=== PATIENT | female | born 1985 | race Caucasian/White ===

== ENCOUNTER 2017-11-18 14:12 | Emergency (ER) | payer OTHER ==
--- NOTE | 2017-11-18 15:22 | ER Document Report ---
ED Medical Screen (RME) - General Chief Complaint: Vag Bleeding, +preg <12wks Stated Complaint: VAGINAL BLEEDING,ABDOMINAL PAIN Time Seen by Provider: 11/18/17 15:15 Notes: 31-year-old female patient is 11 weeks . She just arrived home from a trip from [place]. She has noted today dark brown vaginal bleeding with cramps. She does not know her blood type, she recalls getting a shot with a previous but does not know what that was. I have greeted and performed a rapid initial assessment of this patient. A comprehensive ED assessment and evaluation of the patient, analysis of test results and completion of the medical decision making process will be conducted by additional ED providers. TRAVEL OUTSIDE OF THE [place] IN LAST 30 DAYS: No - Related Data Allergies/Adverse Reactions: No Known Allergies Allergy (Verified 11/18/17 14:16) Past Medical History - Social History Chew tobacco use (# tins/day): No Frequency of alcohol use: None Drug Abuse: None Pulmonary Medical History: Reports: Hx Asthma - states stocking inspector told her yesterday she may have asthma Renal/ Medical History: Denies: Hx Peritoneal Dialysis Past Surgical History: Reports: Hx Abdominal Surgery - laproscopic, Hx Section - Immunizations Immunizations up to date: Yes Hx Diphtheria, Pertussis, Tetanus Vaccination: Yes Physical Exam - Vital signs Vitals: Temp Pulse Resp BP Pulse Ox 97.6 F 81 18 112/73 100 11/18/17 15:05 11/18/17 15:05 11/18/17 15:05 11/18/17 15:05 11/18/17 15:05 Course - Vital Signs Vital signs: Temp Pulse Resp BP Pulse Ox 97.6 F 81 18 112/73 100 11/18/17 15:05 11/18/17 15:05 11/18/17 15:05 11/18/17 15:05 11/18/17 15:05
[2017-11-18 15:39] LABS: APPEARANCE,URINE SLIGHTLY-CLOUDY; BILIRUBIN,URINE NEGATIVE (NEGATIVE); COLOR,URINE STRAW; GLUCOSE, URINE NEGATIVE (NEGATIVE); KETONES,URINE NEGATIVE (NEGATIVE); LEUKOCYTE ESTERASE,URINE NEGATIVE (NEGATIVE); NITRITE,URINE NEGATIVE (NEGATIVE); PROTEIN,URINE NEGATIVE (NEGATIVE); URINE SPECIFIC GRAVITY 1.005; UROBILINOGEN,URINE NEGATIVE mg/dL (<2.0)
[2017-11-18 16:11] LABS: ABSOLUTE EOSINOPHILS # (AUTO) 0.1 10^3/uL (0.0-0.6); ABSOLUTE LYMPHOCYTES (AUTO) 2.2 10^3/uL (0.5-4.7); ABSOLUTE MONOCYTES (AUTO) 0.4 10^3/uL (0.1-1.4); BASOPHILS % (AUTO) 0.3 % (0-2); EOSINOPHILS % (AUTO) 1.1 % (0-6); HEMATOCRIT 37.2 % (36.0-47.0); HEMOGLOBIN 12.5 g/dL (12.0-15.5); LYMPHOCYTES % (AUTO) 18.6 % (13-45); MEAN CORPUSCULAR HEMOGLOBIN 30.6 pg (27.0-33.4); MEAN CORPUSCULAR HGB CONC 33.7 g/dL (32.0-36.0); MEAN CORPUSCULAR VOLUME 91 fl (80-97); MONOCYTES % (AUTO) 3.1 % (3-13); PLATELET COUNT 315 10^3/uL (150-450); RED CELL DISTRIBUTION WIDTH 13.3 % (11.5-14.0); SEGMENTED NEUTROPHILS % (AUTO) 76.9 % (42-78); TOTAL CELLS COUNTED % (AUTO) 100 %; WHITE BLOOD COUNT 11.7 10^3/uL (4.0-10.5)
--- NOTE | 2017-11-18 16:27 | ER Document Report ---
ED GI/ - General Chief Complaint: Vag Bleeding, +preg <12wks Stated Complaint: VAGINAL BLEEDING,ABDOMINAL PAIN Time Seen by Provider: 11/18/17 15:15 Notes: Patient is a 11-1/2 weeks 31-year-old female who presents emergency department complaining of mild right lower quadrant cramping with minimal vaginal bleeding 1. Describes it as less than a cup and just stained her underwear did not leak through her pants. She denies any vaginal bleeding when she went to wipe. She admits to mild right lower quadrant discomfort. Had an ultrasound confirming her last week. History of endometriosis and ovarian cysts. Follows with [facility] TRAVEL OUTSIDE OF THE [place] IN LAST 30 DAYS: No - Related Data Allergies/Adverse Reactions: No Known Allergies Allergy (Verified 11/18/17 14:16) Past Medical History - Social History Smoking Status: Never Smoker Chew tobacco use (# tins/day): No Frequency of alcohol use: None Drug Abuse: None Family History: Reviewed & Not Pertinent Patient has suicidal ideation: No Patient has homicidal ideation: No Pulmonary Medical History: Reports: Hx Asthma - states director new product told her yesterday she may have asthma Renal/ Medical History: Denies: Hx Peritoneal Dialysis Past Surgical History: Reports: Hx Abdominal Surgery - laproscopic, Hx Section - Immunizations Immunizations up to date: Yes Hx Diphtheria, Pertussis, Tetanus Vaccination: Yes Review of Systems - Review of Systems Constitutional: No symptoms reported Cardiovascular: No symptoms reported Respiratory: No symptoms reported Gastrointestinal: See HPI Genitourinary: No symptoms reported Female Genitourinary: See HPI -: Yes All other systems reviewed and negative Physical Exam - Vital signs Vitals: Temp Pulse Resp BP Pulse Ox 97.6 F 81 18 112/73 100 11/18/17 15:05 11/18/17 15:05 11/18/17 15:05 11/18/17 15:05 11/18/17 15:05 - Notes Notes: PHYSICAL EXAM GENERAL: Alert, interacts well. LUNGS: Clear to auscultation bilaterally, no wheezes, rales, or rhonchi. No respiratory distress. HEART: Regular rate and rhythm. No murmurs, gallops, or rubs. ABDOMEN: Gravid, soft, nondistended, nontender. No guarding, rebound, or rigidity.. Bowel sounds present in all 4 quadrants. EXTREMITIES: Moves all 4 extremities spontaneously. No edema, radial and dorsalis pedis pulses 2/4 bilaterally. No cyanosis. NEUROLOGICAL: Alert and oriented x4. Normal speech. PSYCH: Normal affect, normal mood. SKIN: Warm, dry, normal turgor. No rashes or lesions noted. Course - Re-evaluation Re-evalutation: 11/18/17 19:09 Patient is a 31-year-old female is hemodynamically stable, no acute distress and afebrile. No evidence of leukocytosis or anemia. No evidence of UTI, dehydration. Transabdominal ultrasound shows 11-1/2 week intrauterine with heart rate of 173. No evidence of subchorionic bleed. Evidence of right ovarian cysts. No evidence of free fluid. Patient at this time will be stable for discharge home with instruction to follow-up in 48-72 hours for repeat blood work. Patient agrees with plan and stable for discharge home. Discussed strict return precautions. - Vital Signs Vital signs: Temp Pulse Resp BP Pulse Ox 98.2 F 94 16 109/71 100 11/18/17 18:55 11/18/17 18:55 11/18/17 18:55 11/18/17 18:55 11/18/17 18:55 - Laboratory Result Diagrams: 11/18/17 15:50 Laboratory results interpreted by me: 11/18/17 11/18/17 11/18/17 15:23 15:50 15:50 WBC 11.7 H Absolute Neutrophils 9.0 H Beta HCG, Quant 08866.00 H Urine Blood SMALL H Urine Ascorbic Acid 40 H - Diagnostic Test Radiology reviewed: Reports reviewed Discharge - Discharge Clinical Impression: Vaginal bleeding in Condition: Good Disposition: HOME, SELF-CARE Additional Instructions: : You are . care is best started as early in as possible. If you're unsure about continuing this , you should discuss this with your physician or with assistant quality manager at [facility]. You should take only medications approved by your physician. Acetaminophen can safely be taken for minor pains. As a rule, medication for chronic conditions such as asthma or seizures can safely be continued. You should discuss with the physician every medicine you take. Any regular exercise program can be continued. Talk to your physician, however, before engaging in competitive or demanding sports. Alcohol, smoking, and "street drugs" are dangerous to your baby. Cocaine is especially dangerous. Don't use any illicit drugs! BLEEDING DURING EARLY : You have been evaluated for passing blood while . While we take this symptom very seriously, most women with your degree of bleeding will go on to have a perfectly normal baby. At this time, there is no indication that a miscarriage will occur. (A miscarriage occurs when the fetus is abnormal. There is no medicine or treatment to prevent it.) A more serious cause of bleeding is tubal (or ectopic) . An ultrasound usually can show whether the is in the uterus or in the tube. Sometimes in early , no fetus is seen. In this case, careful follow-up, including repeat blood tests and repeat ultrasound, is necessary. Do not douche or have sex for at least a week, or until OK'd by the doctor. Don't use tampons. Call the doctor or return for re-examination if there is an increase in bleeding or cramping, extreme weakness, fainting, new abdominal pain, fever, or passage of tissue. FOLLOW-UP CARE: If you have been referred to a physician for follow-up care, call the physician s office for an appointment as you were instructed or within the next two days. If you experience worsening or a significant change in your symptoms (very heavy bleeding with large clots of blood, passage of tissue, more severe abdominal / pelvic pain or cramping, feeling faint or severe weakness, fever, etc.), notify the physician immediately or return to the Emergency Department at any time for re-evaluation. OBSTETRIC-GYNECOLOGIC (OB-BARREL STRAIGHTENER) PHYSICIANS IN [place]: [facility] [address] [place] [address] [phone] Forms: Follow-Up Laboratory Testing
[2017-11-18] MEDS ORDERED: ONDANSETRON 4 MG TAB.RAPDIS PO ONE (18:41)
[2017-11-18] MEDS ORDERED: ACETAMINOPHEN 325 MG TABLET PO ONE (18:42)
--- NOTE | 2017-11-18 18:43 | RADIOLOGY REPORT (SQ) ---
EXAM DESCRIPTION: U/S [id number] TRNABD 1GES W/ODOP COMPLETED DATE/TIME: 11/18/2017 6:32 pm REASON FOR STUDY: 11 wks, dark brown bleeding w/ cramps today COMPARISON: None. TECHNIQUE: Transabdominal static and realtime grayscale images acquired of the pelvis. Additional se lected spectral and color Doppler images recorded. All images stored on PACs. [id number] LIMITATIONS: None. FINDINGS: FETUS: Living intrauterine . EGA: 11 weeks 6 days LUCÍA: 06/03/2008 FHR: 173 beats per minute. SUBCHORIONIC BLEED: No SIZE OF BLEED: Not applicable. UTERUS: No masses. No anomalies. CERVICAL LENGTH: 3.5 cm Closed. RIGHT ADNEXA: Hypoechoic areas identified in the right ovary measuring 2.3 x 2.3 x 1.7 cm which may r epresent a corpus lutein cysts. No adnexal free fluid. No adnexal masses. LEFT ADNEXA: Left ovary is not visualized. No adnexal free fluid. No adnexal masses. FREE FLUID: None. OTHER: No other significant finding. IMPRESSION: LIVING INTRAUTERINE . EGA 11 weeks 6 days Trimester of : First - 0 to 13 weeks. TECHNICAL DOCUMENTATION: JOB ID: [id number] [employer]- All Rights Reserved
[2017-11-18 18:55] VITALS: BP 109/71
== END 2017-11-18 19:24 | disposition home or self-care (01) ==
LOC: ER 14:12
DX: O46.91 Antepartum hemorrhage, unspecified, first trimester (principal); R10.31 Right lower quadrant pain; Z3A.11 11 weeks gestation of pregnancy
CPT/HCPCS: 99284; 86900; 86901; 36415; 84702; 85025; 81001; 76801; S0119

== ENCOUNTER → 2017-11-22 | Outpatient (CLI) | payer OTHER | LOC: LB 16:50 | PROVIDERS: ATTEND Physician Assistant Surgical | DX: N93.9 Abnormal uterine and vaginal bleeding, unspecified (principal) ==

== ENCOUNTER → 2017-11-22 | Outpatient (CLI) | payer OTHER | LOC: LAB 16:59 | PROVIDERS: ATTEND Physician Assistant Surgical | DX: N93.9 Abnormal uterine and vaginal bleeding, unspecified (principal) | CPT/HCPCS: 36415; 84702 ==

== ENCOUNTER 2020-05-16 06:53 | Emergency (ER) | payer OTHER ==
[2020-05-16 07:00] VITALS: BP 103/67
[2020-05-16] MEDS ORDERED: ONDANSETRON 4 MG TAB.RAPDIS PO ONE (07:10)
== END 2020-05-16 08:28 | disposition left against medical advice (07) ==
LOC: ER 06:53
DX: Z53.21 Procedure and treatment not carried out due to patient leaving prior to being seen by health care provider (principal); R51 Headache; R11.10 Vomiting, unspecified
CPT/HCPCS: S0119

== ENCOUNTER 2020-11-06 23:06 | Emergency (ER) | payer OTHER ==
[2020-11-06] MEDS ORDERED: ONDANSETRON HCL INJ/PF 4 MG/2 ML SDV IV ONE (23:30)
[2020-11-06] MEDS ORDERED: RINGERS SOLUTION,LACTATED 1,000 ML IV ONE (23:30)
--- NOTE | 2020-11-06 23:33 | ER Document Report ---
ED Medical Screen (RME) - General Chief Complaint: Nausea/Vomiting Stated Complaint: HEADACHE/NAUSEA/DIZZINES Time Seen by Provider: 11/06/20 23:24 Mode of Arrival: Wheelchair Information source: Patient Notes: Patient is a 34-year-old female comes emergency room with uncontrolled vomiting. 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 She felt like she might be just dehydrated and has been drinking lots of water when she went to bed tonight she got nauseous and started vomiting. She has brought up some brownish clear fluid but she had a roast beef type presentation for dinner tonight. No one else in the house has been sick. Patient was Covid positive back in August and still has not regained her sense of taste or smell. Patient's only past medical history is pertinent for cardiomyopathy and is currently on a beta-wilner. Last menstrual period is at its and currently. She does have an IUD in place. Physical examination: Patient is a well-nourished well-developed 34-year-old female who is in no distress but is obviously ill appearing and actively vomiting on examination. Cardiac: Patient has a slightly tachycardic rate at 101 bpm. Lungs: Bilateral breath sounds breath sounds increased clear auscultation. Abdomen: Bowel sounds are present all 4 quads nontender to palpate. Patient is a past surgical history is pertinent for 2 C-sections. I have greeted and performed a rapid initial assessment of this patient. A comprehensive ED assessment and evaluation of the patient, analysis of test results and completion of the medical decision making process will be conducted by additional ED providers. Dictation of this chart was performed using voice recognition software; therefore, there may be some unintended grammatical errors. TRAVEL OUTSIDE OF THE [place] IN LAST 30 DAYS: No - Related Data Allergies/Adverse Reactions: haloperidol [From Haldol] Allergy (Verified 11/06/20 23:30) metoclopramide [From Reglan] Allergy (Verified 11/06/20 23:30) Past Medical History - Social History Chew tobacco use (# tins/day): No Frequency of alcohol use: Occasional Drug Abuse: None Pulmonary Medical History: Reports: Hx Asthma - states storage management consultant told her yesterday she may have asthma Renal/ Medical History: Denies: Hx Peritoneal Dialysis Past Surgical History: Reports: Hx Abdominal Surgery - laproscopic, Hx Section - Immunizations Immunizations up to date: Yes Hx Diphtheria, Pertussis, Tetanus Vaccination: Yes Physical Exam - Vital signs Vitals: Temp Pulse Resp BP Pulse Ox 98.0 F 101 H 18 119/73 100 11/06/20 23:13 11/06/20 23:13 11/06/20 23:13 11/06/20 23:13 11/06/20 23:13 Course - Vital Signs Vital signs: Temp Pulse Resp BP Pulse Ox 98.0 F 101 H 18 119/73 100 11/06/20 23:26 11/06/20 23:13 11/06/20 23:13 11/06/20 23:13 11/06/20 23:13
[2020-11-07 00:27] LABS: ABSOLUTE EOSINOPHILS # (AUTO) 0.1 10^3/uL (0.0-0.6); ABSOLUTE MONOCYTES (AUTO) 0.4 10^3/uL (0.1-1.4); ABSOLUTE NEUT (AUTO) 7.3 10^3/uL (1.7-8.2); HEMOGLOBIN 12.9 g/dL (12.0-15.5); PLATELET COUNT 265 10^3/uL (150-450); TOTAL CELLS COUNTED % (AUTO) 100 %
[2020-11-07 00:48] LABS: ALBUMIN 4.1 g/dL (3.5-5.0); ALKALINE PHOSPHATASE 41 U/L (38-126); ANION GAP 9 (5-19); ASPARTATE AMINO TRANSFERASE 31 U/L (14-36); BILIRUBIN,DIRECT 0.1 mg/dL (0.0-0.4); BILIRUBIN,TOTAL 0.6 mg/dL (0.2-1.3); BLOOD UREA NITROGEN 17 mg/dL (7-20); CALCIUM 9.4 mg/dL (8.4-10.2); CARBON DIOXIDE 29 mmol/L (22-30); CHLORIDE 103 mmol/L (98-107); GLUCOSE 127 mg/dL (75-110); POTASSIUM 3.2 mmol/L (3.6-5.0); TOTAL PROTEIN 6.9 g/dL (6.3-8.2)
[2020-11-07 00:50] LABS: ABSOLUTE LYMPHOCYTES (AUTO) 1.9 10^3/uL (0.5-4.7); BASOPHILS % (AUTO) 0.3 % (0-2); EOSINOPHILS % (AUTO) 0.8 % (0-6); HEMATOCRIT 38.1 % (36.0-47.0); LYMPHOCYTES % (AUTO) 19.9 % (13-45); MEAN CORPUSCULAR HEMOGLOBIN 30.7 pg (27.0-33.4); MEAN CORPUSCULAR HGB CONC 33.8 g/dL (32.0-36.0); MEAN CORPUSCULAR VOLUME 91 fl (80-97); RED CELL DISTRIBUTION WIDTH 13.2 % (11.5-14.0); WHITE BLOOD COUNT 9.7 10^3/uL (4.0-10.5)
[2020-11-07] MEDS ORDERED: DIPHENHYDRAMINE HCL 50 MG/ML VIAL IV ONE (02:08)
[2020-11-07] MEDS ORDERED: KETOROLAC TROMETHAMINE INJ/PF 30 MG/1 ML SDV IV ONE (02:08)
[2020-11-07] MEDS ORDERED: PROMETHAZINE HCL INJ 25 MG/1 ML VIAL IV ONE (02:09)
--- NOTE | 2020-11-07 03:09 | RADIOLOGY REPORT (SQ) ---
CHEST X-RAY 2 view on 11/07/2020 at 2:31 AM CLINICAL INDICATION: Syncope COMPARISON: 12/24/2013 FINDINGS: The lungs are clear. Cardiac, hilar and mediastinal contours are within normal limits. Pulmonary vascularity is within normal limits. No bony abnormality is noted. IMPRESSION: No active disease.
--- NOTE | 2020-11-07 04:01 | ER Document Report ---
ED General - General Chief Complaint: Nausea/Vomiting Stated Complaint: HEADACHE/NAUSEA/DIZZINES Time Seen by Provider: 11/06/20 23:24 Primary Care Provider: KARTHIK BIRMINGHAM NP [Primary Care Provider] - Follow up as needed Mode of Arrival: Wheelchair TRAVEL OUTSIDE OF THE [place] IN LAST 30 DAYS: No - HPI Notes: Chief Complaint: Headache, nausea vomiting Historian: History obtained from patient HPI: This is a 34-year-old female presents to the ED complaining of headache, nausea vomiting, near syncope. Patient says she developed a headache soon after having a scheduled massage earlier today. Headache is bitemporal and occipital. Gradual onset not the worst headache of her life. She has been nauseous intermittently today. While at home this evening patient says she had an episode of feeling lightheaded and near syncope at home while walking through the kitchen. When she arrived in the ED she had 2 episodes of nonbloody emesis. She denies chest pain, shortness of breath, abdominal pain, bowel changes, urinary changes. She does have a history of having headache syndromes which this is similar. No recent head injury or trauma. She denies any vision changes, unilateral numbness weakness. Or other neuro deficits. No fever, chills or other infectious signs. ROS: Constitutional: no fevers. HEENT: Headache CV: no chest pain or palpitations. Resp: no cough or SOB. GI: Nausea vomiting : no dysuria, hematuria, or incont. MSK: no back pain, no joint swelling/redness. Skin: no rashes or itching. Neuro: Near syncope Hematological: no ecchymosis or easy bleeding. Endocrine: no polyuria/polydipsia, no heat/cold intolerance. Psych: no SI/HI, AH/VH or memory loss. PMHx: Reviewed and agree as charted by RN. PSHx: Reviewed and agree as charted by RN. SOCHx: Reviewed and agree as charted by RN. FHX: No significant familial comorbid conditions directly related to patient complaint Current Medications: Reviewed and agree with the patient medications as charted by the RN. Allergies: Reviewed and agree with the listed allergies as charted by the RN Physical Exam: Vitals: Reviewed in chart as documented by RN. General: Alert and in NAD. Head: Normocephalic; atraumatic Eyes: PERRLA, Conjunctivae clear sclerae non-icteric bilat ENT: no soft palate swelling or uvular deviation Neck: trachea midline, no unilateral swelling/tenderness/lymphadenopathy CV: RRR, no M/R/G; symmetric distal pulses Resp: respirations even and unlabored, CTA bilat. GI: abd soft and nondistended. NTTP. normal BS. no masses/HSM. no CVAT bilat MSK: FROM of all extremities. No midline CTL spine tenderness/deformity Skin: warm, moist, good turgor. no rash/lesions Neuro: Alert and oriented X 4. following CN 2-12 intact. no unilateral weakness/numbness Psych: No SI/HI or AH/VH. ED Results: Medical Decision-Making: Differential includes electrolyte abnormality, orthostatic hypotension, dehydration, metabolic abnormality, vasovagal, neurogenic syncope, cardiogenic syncope, infectious etiologies, hypoglycemia, migraine, headache syndromes, tension headache, cluster headache, ICH, cardiac abnormalities, anemia etc. [employer], CK level UA, EKG, chest x-ray, IV fluids. Toradol Phenergan and Benadryl given for headache. No episodes of vomiting since receiving medications. Patient says she is feeling better since receiving IV fluids. 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 orthostatic VS negative. pt resting comfortable in bed. no episodes of vomiting for past few hours. - Vital Signs Vital signs: Temp Pulse Resp BP Pulse Ox 98.0 F 70 18 104/56 L 100 11/06/20 23:26 11/07/20 04:18 11/06/20 23:13 11/07/20 04:18 11/06/20 23:13 - Laboratory Results Result Diagrams: 11/07/20 00:13 11/07/20 00:13 Laboratory Results Interpreted: 11/07/20 00:13 Potassium 3.2 L Glucose 127 H Critical Laboratory Results Reviewed: No Critical Results - Radiology Results Critical Radiology Results Reviewed: No Critical Results - EKG Interpretation by Me EKG shows normal: Sinus rhythm Rate: Normal Rhythm: NSR [place]/QRS: No: Right axis deviation, Left axis deviation, RBBB, LBBB, IVCD, LAHB/LAFB, LPHB/LPFB, Bifasicular block Voltage: No: Increased voltage, Consistent with LVH, Consistent with RVH, Dec reased voltage, Throughout, Limb leads P Waves: No: PERCY, LAE, Absent, AV Dissociation, Other Heart block present: No: 1st Degree, Mobitz 1, Mobitz 2, CHB (3rd degree block) When compared to previous EKG there are: Previous EKG unavailable Additional EKG results interpreted by me: 11/07/20 04:02 EKG reviewed by ER physician. Discharge - Discharge Clinical Impression: Near syncope, Hypokalemia Headache Qualifiers: Headache type: other headache syndrome Qualified Code(s): G44.89 - Other headache syndrome Nausea & vomiting Qualifiers: Vomiting type: unspecified Vomiting Intractability: intractable Qualified Code(s): R11.2 - Nausea with vomiting, unspecified Condition: Stable Disposition: HOME, SELF-CARE Instructions: Antinausea Medication ([facility]) Additional Instructions: drink plenty of fluids to stay hydrated. follow printed instructions. follow up with your doctor in 2-3 days for recheck. return to the ER if your condition worsens. Prescriptions: Promethazine HCl [Phenergan 25 mg Tablet] 25 - 50 mg PO ASDIR PRN #12 tablet PRN Reason: Referrals: KARTHIK BIRMINGHAM NP [Primary Care Provider] - Follow up as needed
[2020-11-07 04:13] LABS: APPEARANCE,URINE CLEAR; BILIRUBIN,URINE NEGATIVE (NEGATIVE); COLOR,URINE COLORLESS; GLUCOSE, URINE NEGATIVE (NEGATIVE); KETONES,URINE NEGATIVE (NEGATIVE); LEUKOCYTE ESTERASE,URINE NEGATIVE (NEGATIVE); NITRITE,URINE NEGATIVE (NEGATIVE); PROTEIN,URINE NEGATIVE (NEGATIVE); URINE SPECIFIC GRAVITY 1.002; UROBILINOGEN,URINE NEGATIVE mg/dL (<2.0)
[2020-11-07 05:35] VITALS: BP 106/57
--- NOTE | 2020-11-07 12:22 | EKG REPORT ---
SEVERITY:- NORMAL ECG - SINUS RHYTHM : Confirmed by: Lizzy Tierney MD 07-Nov-2020 12:22:15
== END 2020-11-07 05:34 | disposition home or self-care (01) ==
LOC: ER 23:06
DX: R51.9 Headache, unspecified (principal); R11.2 Nausea with vomiting, unspecified; R55 Syncope and collapse; E87.6 Hypokalemia; Z88.8 Allergy status to other drugs, medicaments and biological substances
CPT/HCPCS: 93005; 99285; 96361; 96374; 96375; 36415; 83690; 85025; 81025; 80053; 81001; 71046; 93010; J1200; J1885; J2550; J2405; J7120

== ENCOUNTER 2020-11-08 04:18 | Emergency (ER) | payer SELFPAY ==
[2020-11-08] MEDS ORDERED: NORMAL SALINE 1000 ML 1,000 ML IV PRN (06:50)
[2020-11-08] MEDS ORDERED: MORPHINE SULFATE 10 MG/ML INJ IV ONE ×2 (06:52→08:18)
[2020-11-08] MEDS ORDERED: ONDANSETRON HCL INJ/PF 4 MG/2 ML SDV IV ONE (06:52)
--- NOTE | 2020-11-08 07:01 | ER Document Report ---
ED General - General Chief Complaint: Headache Stated Complaint: NAUSEA/HEADACHE Time Seen by Provider: 11/08/20 06:35 Primary Care Provider: KARTHIK BIRMINGHAM NP [Primary Care Provider] - Follow up as needed TRAVEL OUTSIDE OF THE [place] 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 This lady has a remote history of rare migraine headaches. States that 3 days ago she awakened with a dull headache around 8 AM. She went to get a massage and this lasted for about 1 hour. During the massage her headache became much worse and she became nauseated and vomited a couple times. She experienced onset of some photophobia at that time. No other visual disturbance. No sensory disturbance and no neur ologic deficit. She tried some icma-fec-fmkpxla medications with no relief of symptoms and ultimately decided to come here yesterday for further evaluation. She was seen by one of the physicians assistants who noted that she did not have any fever and had no abnormal neurologic findings. He did not feel that she had evidence of meningitis at that time. No head CT was done. Patient showed some improvement of her symptoms after receiving IV fluids and Benadryl and Reglan. Patient says that she got some mild akathisia symptoms after receiving Benadryl and Phenergan. She was found to have a low potassium of 3.2 and was sent home on some potassium. She comes back in now saying her headache is worse and she is having persistent photophobia and nausea. She continues to deny fever. She denies skin rash. Patient is basically healthy. She takes a beta-wilner chronically noting that she has had a past history of a peripartum cardiomyopathy after her last . She is a 4 para 3 AB 1 with 2 previous C-sections. Patient reports that she previously had Covid about 6 months ago. She has had no recent exposure to ill individuals that she is aware of. - Related Data Allergies/Adverse Reactions: haloperidol [From Haldol] Allergy (Verified 11/06/20 23:30) metoclopramide [From Reglan] Allergy (Verified 11/06/20 23:30) Home Medications: lexapro, metoprolol, vit b6 Past Medical History - General Information source: Patient - Social History Smoking Status: Never Smoker Frequency of alcohol use: Rare Drug Abuse: None Lives with: Family Family History: Reviewed & Not Pertinent - Past Medical History Cardiac Medical History: Reports: Other - History of peripartum cardiomyopathy Pulmonary Medical History: Reports: Hx Asthma - states printer technician told her yesterday she may have asthma Neurological Medical History: Reports: Hx Migraine Endocrine Medical History: Denies: Hx Diabetes Mellitus Type 1, Hx Diabetes Mellitus Type 2 Renal/ Medical History: Denies: Hx Peritoneal Dialysis Psychiatric Medical History: Reports: Hx Anxiety Past Surgical History: Reports: Hx Abdominal Surgery - laproscopic, Hx Section - Immunizations Immunizations up to date: Yes Hx Diphtheria, Pertussis, Tetanus Vaccination: Yes Review of Systems - Review of Systems Notes: Constitutional: Negative for fever. HENT: Negative for sore throat. Eyes: As per HPI. Cardiovascular: Negative for chest pain. Respiratory: Negative for shortness of breath. Gastrointestinal: As per HPI. Genitourinary: Negative for dysuria. Musculoskeletal: Negative for back pain. Skin: Negative for rash. Neurological: As per HPI. 10 point ROS negative except as marked above and in HPI. Physical Exam - Vital signs Vitals: Temp Pulse BP Pulse Ox 98.2 F 83 114/78 98 11/07/20 16:23 11/07/20 16:23 11/07/20 16:23 11/07/20 16:23 - Notes Notes: GENERAL: Slender female approximately stated age who appears moderately uncomfortable and photophobic. SKIN: Good turgor no rashes. HEAD: Normocephalic atraumatic. EYES: PERRLA. EOMI. Conjunctivae and sclerae clear. EARS: CANALS AND TMS CLEAR. NOSE: CLEAR. MOUTH: Moist mucosa. Good dentition. No stridor or edema. No drooling. NECK: Mild meningismus. No masses or thyromegaly. No adenopathy. Carotids 2+ without bruits. No JVD. BACK: Symmetrical without tenderness. CHEST: Respirations unlabored. Breath sounds clear and symmetrical. HEART: Regular rhythm. No murmur gallop or rub. ABDOMEN: Soft nontender without masses, organomegaly or rebound. Bowel sounds normally active. No bruits. GENITALIA: Deferred. EXTREMITIES: No edema. No calf tenderness. Cap refill less than 1.5 seconds. Dorsalis pedis and posterior tibial pulses 3+ and symmetrical. NEUROLOGICAL: GCS 15. Alert and oriented x3. Normal gait. Fluent speech. Cranial nerves II through XII intact. Sensorimotor and cerebellar normal. Normal tone. PSYCHIATRIC: Anxious affect. Course - Re-evaluation Re-evalutation: 11/08/20 12:51 Patient is afebrile here. Her white count was not elevated. Her chemistry profile today is unremarkable. Normal head CT per radiologist. We did an LP to rule out an aseptic meningitis. She had a mild traumatic tap but the fluid cleared completely in the cell count on tube #4 shows a single white cell. Patient received Dilaudid here for relief of her pain. We subsequently obtained MRI of the brain to rule out dural sinus thrombosis and this was read as negative by the radiologist. I think this lady probably has had migraine headache which is now improved. She appears stable for outpatient management by her primary provider. Findings, clinical impression and plan of treatment have been discussed with patient/family. Understanding of current findings and recommendations has been acknowledged by them and there is agreement regarding disposition and follow-up. - Vital Signs Vital signs: Temp Pulse Resp BP Pulse Ox 98.1 F 78 17 107/66 100 11/08/20 10:35 11/08/20 10:35 11/08/20 04:25 11/08/20 10:35 11/08/20 10:35 - Laboratory Results Result Diagrams: 11/08/20 07:24 11/08/20 09:59 Laboratory Results Interpreted: 11/08/20 11/08/20 11/08/20 07:24 08:49 09:59 Seg Neutrophils % 78.8 H Chloride 115 H Anion Gap 1 L Creatinine 0.43 L Calcium 7.1 L CSF WBC 28 H CSF RBC [id number] H Critical Laboratory Results Reviewed: Yes Attending or Supervising Physician who Reviewed Labs: LAURA ZEPEDA - Radiology Results Critical Radiology Results Reviewed: Yes Attending or Supervising Physician who Reviewed Radiology: LAURA ZEPEDA Procedures - Lumbar Puncture Lumbar puncture Time completed: 08:48 Consent obtained: Yes Lumbar puncture pre-procedure: Sterile PPE donned, Betadine prep applied, Sterile drapes applied Patient position: Sitting Needle size: 22 Lumbar puncture location: L4/5 Anesthetic type: 1% Lidocaine mL's of anesthetic: 3 Amount/type of drainage: Traumatic tap cleared from Tube 1-4 Number of attempts: 1 Complications: No Discharge - Discharge Clinical Impression: Headache Qualifiers: Headache type: unspecified Headache chronicity pattern: acute headache Intractability: not intractable Qualified Code(s): R51.9 - Headache, unspecified Condition: Stable Disposition: HOME, SELF-CARE Additional Instructions: See your primary care provider within the next 24 to 48 hours. Return here as needed for new or worsening symptoms: Pain that is worsening or unimproved Uncontrolled vomiting High fever or shaking chills Overall worsening Prescriptions: Oxycodone HCl/Acetaminophen [Percocet 5-325 mg Tablet] 1 tab PO Q6H PRN #15 tablet PRN Reason: Ondansetron [Zofran Odt 4 mg Tablet] 1 - 2 tab PO Q4H PRN #15 tab.rapdis PRN Reason: For Nausea/Vomiting Referrals: KARTHIK BIRMINGHAM [employer] SPECIALIST [Primary Care Provider] - Follow up as needed
[2020-11-08 07:35] LABS: ABSOLUTE LYMPHOCYTES (AUTO) 1.6 10^3/uL (0.5-4.7); ABSOLUTE MONOCYTES (AUTO) 0.3 10^3/uL (0.1-1.4); ABSOLUTE NEUT (AUTO) 7.2 10^3/uL (1.7-8.2); BASOPHILS % (AUTO) 0.3 % (0-2); EOSINOPHILS % (AUTO) 0.5 % (0-6); HEMATOCRIT 37.8 % (36.0-47.0); HEMOGLOBIN 12.8 g/dL (12.0-15.5); LYMPHOCYTES % (AUTO) 17.3 % (13-45); MEAN CORPUSCULAR HEMOGLOBIN 31.3 pg (27.0-33.4); MEAN CORPUSCULAR HGB CONC 33.9 g/dL (32.0-36.0); MEAN CORPUSCULAR VOLUME 92 fl (80-97); MONOCYTES % (AUTO) 3.1 % (3-13); PLATELET COUNT 250 10^3/uL (150-450); RED CELL DISTRIBUTION WIDTH 13.3 % (11.5-14.0); SEGMENTED NEUTROPHILS % (AUTO) 78.8 % (42-78); TOTAL CELLS COUNTED % (AUTO) 100 %; WHITE BLOOD COUNT 9.2 10^3/uL (4.0-10.5)
[2020-11-08 07:42] LABS: INTERNATIONAL RATION (INR) 0.91; PROTHROMBIN TIME 12.5 SEC (11.4-15.4)
--- NOTE | 2020-11-08 08:14 | RADIOLOGY REPORT (SQ) ---
EXAM DESCRIPTION: CT HEAD WITHOUT IMAGES COMPLETED DATE/TIME: 11/08/2020 7:45 am REASON FOR STUDY: headache COMPARISON: None. TECHNIQUE: Axial images acquired through the brain without intravenous contrast. Images reviewed wi th bone, brain and subdural windows. Additional sagittal and coronal reconstructions were generated. Images stored on PACS. All CT scanners at this facility use dose modulation, iterative reconstruction, and/or weight based d osing when appropriate to reduce radiation dose to as low as reasonably achievable (ALARA). [facility]: Dose Right [facility]: CareDose [facility]: Dose Right [facility]: Teradose 4D [facility]: [employer] RADIATION DOSE: CT Rad equipment meets quality standard of care and radiation dose reduction techniq ues were employed. CTDIvol: 48.9 mGy. DLP: 861 mGy-cm. LIMITATIONS: None. FINDINGS: There is no acute intracranial hemorrhage, vascular territorial infarct, extra-axial fluid collection, mass effect or midline shift. The rice-white matter differentiation is preserved. The caliber of the ventricles is concordant with degree of sulcation. There is no effacement of the cere bral sulci or basal subarachnoid cisterns. The orbits and globes are intact. The paranasal sinuses and the mastoid air cells are clear. There is no fracture of the calvarium. IMPRESSION: No acute intracranial abnormality. EVIDENCE OF ACUTE STROKE: NO. COMMENT: Quality ID # [id number]: Final reports with documentation of one or more dose reduction techniques (e.g., Automated exposure control, adjustment of the mA and/or kV according to patient size, use of iterative reconstruction technique) TECHNICAL DOCUMENTATION: JOB ID: [id number] 2010 [employer]- All Rights Reserved Reading location - IP/workstation name: [email or web address]
[2020-11-08] MEDS ORDERED: LIDOCAINE 1% INJ-PF (10 MG/ML) 30 ML SDV INJ ONE (08:19)
[2020-11-08] MEDS ORDERED: ONDANSETRON HCL INJ/PF 4 MG/2 ML SDV ONE (08:28)
[2020-11-08] MEDS ORDERED: NORMAL SALINE 1000 ML 1,000 ML IV ONE (08:50)
[2020-11-08] MEDS ORDERED: HYDROMORPHONE HCL INJ/PF 2 MG/ML AMPULE IV ONE (09:07)
[2020-11-08 09:37] LABS: CSF TUBE NUMBER 1
[2020-11-08 09:38] LABS: APPEARANCE TUBE 1 TURBID; APPEARANCE TUBE 2 CLOUDY; APPEARANCE TUBE 3 CLEAR; APPEARANCE TUBE 4 CLEAR; COLOR TUBE 1 RED; COLOR TUBE 2 PINK; COLOR TUBE 3 COLORLESS; COLOR TUBE 4 COLORLESS
[2020-11-08 09:39] LABS: GLUCOSE,CSF 59 mg/dL (40-70); PROTEIN,CSF 29 mg/dL (12-60); VOLUME TUBE 2 0.5 CC; VOLUME TUBE 3 0.5 CC
[2020-11-08 10:03] LABS: RED BLOOD CELL,CSF 128265 /uL (0-10)
[2020-11-08 10:05] LABS: WHITE BLOOD CELL,CSF 28 /uL (0-5)
[2020-11-08 10:12] LABS: CSF TUBE NUMBER 4
[2020-11-08 10:13] LABS: APPEARANCE TUBE 1 TURBID; APPEARANCE TUBE 2 CLOUDY; APPEARANCE TUBE 3 CLEAR; APPEARANCE TUBE 4 CLEAR; COLOR TUBE 1 RED; COLOR TUBE 2 PINK; COLOR TUBE 3 COLORLESS; COLOR TUBE 4 COLORLESS; VOLUME TUBE 2 0.5 CC; VOLUME TUBE 3 0.5 CC
[2020-11-08 10:21] LABS: RED BLOOD CELL,CSF 102 /uL (0-10); WHITE BLOOD CELL,CSF 1 /uL (0-5)
[2020-11-08 10:42] LABS: BLOOD UREA NITROGEN 9 mg/dL (7-20); CALCIUM 7.1 mg/dL (8.4-10.2); GLUCOSE 100 mg/dL (75-110); POTASSIUM 4.3 mmol/L (3.6-5.0)
[2020-11-08 10:48] LABS: CARBON DIOXIDE 24 mmol/L (22-30); CHLORIDE 115 mmol/L (98-107)
[2020-11-08 10:55] LABS: ANION GAP 1 (5-19)
[2020-11-08 11:23] LABS: MONONUCLEAR CELLS CSF 1 %; POLYMORPHONUCLEAR CELLS CSF 99 %
--- NOTE | 2020-11-08 12:29 | RADIOLOGY REPORT (SQ) ---
EXAM DESCRIPTION: MRA HEAD COMBO IMAGES COMPLETED DATE/TIME: 11/08/2020 11:42 am REASON FOR STUDY: intractable headache MRV with contrast per RAD COMPARISON: CT of the head without contrast from 11/08/2020. TECHNIQUE: Contrast-enhanced MRV with 3D reformats. CONTRAST TYPE AND DOSE: 10 mL Prohance. RENAL FUNCTION: Not indicated. ACR Type II contrast agent associated with few, if any, unconfounded cases of NSF LIMITATIONS: None. FINDINGS: Limited visualization of the transverse sinuses, straight sinus and inferior sagittal sinu s. The superior sagittal sinus and sigmoid sinuses are patent. On correlation with a noncontrast en hanced CT from 11/08/2020 there is no hyperdensity along the course of the transverse sinuses, strai ght sinus and inferior sagittal sinus. IMPRESSION: Limited contrast-enhanced MR T with suboptimal visualization of the transverse sinuses, straight sinus and inferior sagittal sinus. The superior sagittal sinus and sigmoid sinuses are paten t. On correlation with a noncontrast enhanced CT from 11/08/2020 there is no hyperdensity along the course of the transverse sinuses, straight sinus and inferior sagittal sinus. TECHNICAL DOCUMENTATION: JOB ID: [id number] [employer]- All Rights Reserved Reading location - IP/workstation name: [email or web address]
[2020-11-08] MEDS ORDERED: OXYCODONE-ACETAMINOPHEN 5-325 MG TABLET PO ONE (12:50)
[2020-11-08 13:28] VITALS: BP 108/70
== END 2020-11-08 13:37 | disposition home or self-care (01) ==
LOC: ER 04:18
DX: R51.9 Headache, unspecified (principal); R11.2 Nausea with vomiting, unspecified; H53.149 Visual discomfort, unspecified; R29.1 Meningismus; F41.9 Anxiety disorder, unspecified; I42.9 Cardiomyopathy, unspecified; Z79.899 Other long term (current) drug therapy; Z86.69 Personal history of other diseases of the nervous system and sense organs; Z86.19 Personal history of other infectious and parasitic diseases; Z88.8 Allergy status to other drugs, medicaments and biological substances
CPT/HCPCS: 62270; 96376; 99285; 96361; 96374; 96375; 36415; 87070; 87205; 83735; 85025; 85610; 85730; 89050; 82945; 84157; 80048; 70450; J2270; J1170; J2405; J7030

== ENCOUNTER → 2020-12-10 | Outpatient (CLI) | payer SELFPAY ==
[~2020-12-10] MED LIST: COVID-19 VACCINE (PFIZER)/PF 30 MCG/0.3 ML VIAL IM ONE; EPINEPHRINE INJ/PF 1 MG/1 ML AMPULE IM PRN
== END ==
LOC: EMPHEALTH 16:43
PROVIDERS: ATTEND Internal Medicine
DX: Z23 Encounter for immunization (principal)
CPT/HCPCS: 91300